=== PATIENT | female | born 1965 | race Hispanic/Latino ===

== ENCOUNTER 2023-06-17 21:28 | Inpatient (IN) | payer MEDICAID, SELFPAY ==
[2023-06-17 22:56] LABS: #Eosinphils 0.1 thou/uL (0.0-0.7); #Monocytes 0.6 thou/uL (0.11-0.59); #Neutrophils 3.9 thou/uL (1.40-6.50); %Basophils 0.4 % (0.0-1.0); %Eosinophils 1.2 % (0.0-10.0); %Lymphocytes 33.3 % (21.0-51.0); %Monocytes 9.2 % (0.0-10.0); %Neutrophils 55.6 % (42.0-75.0); Hematocrit 36.3 % (36.0-47.0); Hemoglobin 12.1 g/dL (12.0-16.0); Mean Corpuscular HGB CONC 33.3 g/dL (32.0-36.0); Mean Corpuscular Hemoglobin 27.5 pg (27.0-31.0); Mean Corpuscular Volume 82.5 fl (78.0-98.0); Mean Platelet Volume 10.1 fL (7.4-10.4); Platelet Count 233 10x3/uL (130-400); RBC Distribution Width 13.3 % (11.5-14.5); White Blood Cell (WBC) Count 6.9 10x3/uL (4.8-10.8)
[2023-06-17 23:20] LABS: ALT (SGPT) 16 U/L (8-55); AST (SGOT) 12 U/L (5-34); Albumin 4.1 g/dL (3.5-5.0); Alkaline Phosphatase 71 U/L (40-110); Anion Gap 14 mmol/L (10-20); BUN (Urea Nitrogen) 15 mg/dL (9.8-20.1); Bilirubin, Total 0.3 mg/dL (0.2-1.2); Calc. Creatinine Clearance 0 mL/min (70-130); Calcium 9.1 mg/dL (7.8-10.44); Carbon Dioxide 23 mmol/L (22-29); Chloride 107 mmol/L (98-107); Estimated GFR 105; Globulin 2.9 g/dL (2.4-3.5); Glucose 105 mg/dL (70-105); Lipase 17 U/L (8-78); Sodium 140 mmol/L (136-145)
[2023-06-17 23:23] LABS: Troponin I Less than 0.010 ng/mL (< 0.028)
[2023-06-18] MEDS ORDERED: Ketorolac Tromethamine 30 MG/ML VIAL ONE (00:37)
[2023-06-18 01:44] LABS: Bacteria/HPF None Seen HPF (None Seen); Bilirubin Negative (Negative); Blood, Urine Negative (Negative); CAUTI Indications for Culture Dysuria,urgency,freq; Clarity Clear (Clear); Glucose, Urine (Dipstick) Normal (Negative); Ketone, Urine Negative (Negative); Leukocyte 25 Leu/uL (Negative); Nitrite Negative (Negative); Protein, Urine (Dipstick) Negative (Neg-Trace); RBC/HPF 0-3 HPF (0-3); Specific Gravity, Urine 1.017 (1.002-1.036); Squamous Epithelial 0-3 HPF (0-3); Urobilinogen Normal mg/dL (Less than 2); WBC/HPF 0-3 HPF (0-3)
[2023-06-18 01:47] LABS: Urine Culture Reflex No No
[2023-06-18 02:10] LABS: SARS-CoV-2 NAA Rapid Test Not Detected (NotDetected)
[2023-06-18] MEDS ORDERED: Ondansetron ODT 4 MG TAB PO PRN (03:56)
[2023-06-18] MEDS ORDERED: Acetaminophen 325 MG TAB PO PRN (03:56)
[2023-06-18 06:06] LABS: Troponin I Less than 0.010 ng/mL (< 0.028)
[2023-06-18 07:26] LABS: Troponin I Less than 0.010 ng/mL (< 0.028)
[2023-06-18] MEDS ORDERED: Aspirin 81 mg Enteric Coated Tablet ONE (08:30)
[2023-06-18] MEDS ORDERED: Famotidine 20 MG TAB ONE (08:31)
[2023-06-18] MEDS ORDERED: Aspirin Chewable 81 MG TAB ONE (08:34)
[2023-06-18] MEDS: Famotidine 20 MG TAB PO SCH ×2 (08:42→20:01)
[2023-06-18] MEDS: Aspirin Chewable 81 MG TAB PO SCH (08:42)
[2023-06-18] MEDS ORDERED: Iopamidol 370 76% 100 ML VIAL ONE (13:40)
[2023-06-19 05:29] LABS: #Eosinphils 0.1 thou/uL (0.0-0.7); #Monocytes 0.3 thou/uL (0.11-0.59); #Neutrophils 2.1 thou/uL (1.40-6.50); %Basophils 0.4 % (0.0-1.0); %Eosinophils 2.5 % (0.0-10.0); %Lymphocytes 42.9 % (21.0-51.0); Hematocrit 36.1 % (36.0-47.0); Hemoglobin 11.9 g/dL (12.0-16.0); Mean Corpuscular Hemoglobin 27.4 pg (27.0-31.0); Platelet Count 218 10x3/uL (130-400); Red Blood Cell (RBC) Count 4.35 mill/uL (4.20-5.40); White Blood Cell (WBC) Count 4.5 10x3/uL (4.8-10.8)
[2023-06-19 06:04] LABS: Anion Gap 13 mmol/L (10-20); BUN (Urea Nitrogen) 12 mg/dL (9.8-20.1); Calc. Creatinine Clearance 154 mL/min (70-130); Calcium 9.1 mg/dL (7.8-10.44); Carbon Dioxide 24 mmol/L (22-29); Cardiac Risk 3.4 (Less than 4.5); Chloride 109 mmol/L (98-107); Cholesterol 174 mg/dl (< 200 Desired); Estimated GFR 107; Glucose 92 mg/dL (70-105); HDL Cholesterol 51 mg/dL (>60 Neg Risk); LDL Cholesterol, Calculated 111 mg/dL; Potassium 4.1 mmol/L (3.5-5.1); Sodium 142 mmol/L (136-145); Triglycerides 59 mg/dL (Less than 150)
[2023-06-19] MEDS: Famotidine 20 MG TAB PO SCH ×2 (08:57→20:15)
[2023-06-19] MEDS: Aspirin Chewable 81 MG TAB PO SCH (08:57)
[2023-06-19] MEDS ORDERED: FLU VACC QS2023-24(6MOS UP)/PF 60 MCG/0.5 ML SYRINGE IM ONE (09:00)
[2023-06-19 12:07] VITALS: BMI 33.6
[2023-06-19] MEDS ORDERED: Regadenoson 0.4 MG/5 ML SYRINGE ONE (13:29)
[2023-06-20] MEDS: Famotidine 20 MG TAB PO SCH ×2 (09:18→20:30)
[2023-06-20] MEDS: Aspirin Chewable 81 MG TAB PO SCH (09:18)
[2023-06-21] MEDS: Aspirin Chewable 81 MG TAB PO SCH (08:41)
[2023-06-21] MEDS: Famotidine 20 MG TAB PO SCH (08:41)
[2023-06-21 12:15] VITALS: BP 129/62; TEMP 98.1
== END 2023-06-21 12:55 | disposition home or self-care (01) | DRG 312 ==
LOC: ERS 21:28 → ERHOLD 06-18 03:55 → 2SW 06-18 14:25 → OBSVTOIN 06-19 15:27
PROVIDERS: ADMIT Student in an Organized Health Care Education/Training Program; ATTEND Internal Medicine
PROC: 4A00X4Z Measurement of Central Nervous Electrical Activity, External Approach (ICD-10-PCS; principal; 2023-06-20)
DX: R55 Syncope and collapse (principal); R07.89 Other chest pain; K76.89 Other specified diseases of liver; I08.1 Rheumatic disorders of both mitral and tricuspid valves; Z11.52 Encounter for screening for COVID-19; R56.9 Unspecified convulsions; Z88.8 Allergy status to other drugs, medicaments and biological substances; E03.9 Hypothyroidism, unspecified; F41.9 Anxiety disorder, unspecified; E78.00 Pure hypercholesterolemia, unspecified; Z79.82 Long term (current) use of aspirin; Z79.899 Other long term (current) drug therapy
CPT/HCPCS: 36415; 70450; 70551; 71045; 71275; 78452; 80048; 80061; 81001; 83690; 84484; 85025; 93005; 93017; 93306; 94760; 95816; 95819; 96374; A9502; G0378; J1885; J2785; Q9967